=== PATIENT | female | born 1970 | race Caucasian/White ===

== ENCOUNTER 2018-03-04 03:51 | Emergency (ER) | payer OTHER ==
--- NOTE | 2018-03-04 04:24 | ED Physician Documentation ---
General Adult - HISTORIAN Historian: patient - HPI Stated Complaint: pressure, tightness across chest, h/a Chief Complaint: General Adult Additional Information: Tingling in ears, light headed, aching GUTIERREZ, elevated BP, precordial chest pressure, for "several days." Lying down made symptoms worse. BP 176/104 on arrival in ER. No SOB. Had similar episode in September and was seen at [facility] ER with negative eval. Father with heart problems at 61, Mother at 80.No other treatment attempted. No other modifying factors or associated signs. Timing: still present - ROS CONST: no problems - PAST HX Past History: hypertension Surgeries/Procedures: other (uterine abl;ation, oophorectomy, salpingectomy) Allergies/Adverse Reactions: Allergies Allergy/AdvReac Type Severity Reaction Status Date / Time Sulfa (Sulfonamide Allergy Severe Anaphylaxis Verified 03/04/18 04:21 Antibiotics) codeine Allergy Intermediate Hives Unverified 03/04/18 04:21 hydrochlorothiazide AdvReac Cough Verified 03/04/18 04:21 Home Medications: Ambulatory Orders Medication Instructions Recorded Hydroxyzine Pamoate [Vistaril] 25 mg PO Q8 PRN #15 capsule 03/04/18 Levothyroxine Sodium [Synthroid] 75 mcg PO D 03/04/18 Loratadine [Claritin] 10 mg PO DAILY #30 tablet 03/04/18 Losartan Potassium [Cozaar] 50 mg PO BID 03/04/18 Metoprolol Tartrate [Lopressor] 25 mg PO D 03/04/18 - SOCIAL HX Smoking History: non-smoker Alcohol Use: none Drug Use: none - FAMILY HX Family History: Yes (above) - VITAL SIGNS Vital Signs: Vital Signs Temp Pulse Resp BP Pulse Ox 98.3 F 68 14 147/68 94 03/04/18 03:51 03/04/18 03:51 03/04/18 03:51 03/04/18 03:51 03/04/18 03:51 - REVIEWED ASSESSMENTS Nursing Assessment Reviewed: Yes Vitals Reviewed: Yes Progress - Progress Progress: EKG: sinus rhythm, 70 BPM, no acute changes. Report Submission Date: Mar 04, 2018 4:55:11 AM CDT Patient Study Name: CROW STEVENS Date: Mar 04, 2018 4:22:49 AM CDT Modality Type: DX Gender: F Description: CHEST : 66 Institution: [facility] Physician: GINA BRISENO - ER Chest two views History: Chest pain Findings: The lungs are clear. There is no pleural effusion. Heart size and pulmonary vascularity are normal. Osseous structures are unremarkable. Impression: Normal. Electronically signed on Mar 04, 2018 4:55:11 AM CDT by: Yosvany Harrison ED Results Lab/Radiology - Orders Orders: ED Orders Category Date Time Status Continuous EKG monitoring Q1H Care 03/04/18 04:[address] IV Lock 1T Care 03/04/18 04:10 Active CHEST 2VIEW [RAD] Stat Exams 03/04/18 Ordered CBC/PLATELET/DIFF Routine Lab 03/04/18 04:17 Received CMP Routine Lab 03/04/18 04:17 Received TROPONIN I (cTnI) Stat Lab 03/04/18 04:17 Received URINALYSIS Routine Lab 03/04/18 Ordered Acetaminophen [Tylenol Extra Strength] Med 03/04/18 04:19 Once 1,000 mg PO NOW ONE Ondansetron HCl/Pf [Zofran 4 mg/2 ml] Med 03/04/18 04:18 Once 4 mg IVP NOW ONE EKG WITH COMPARISON Stat Ther 03/04/18 Ordered General Adult Physical Exam - PHYSICAL EXAM GENERAL APPEARANCE: mild distress (anxious) EENT: eye inspection normal, ENT inspection normal, pharynx normal, no signs of dehydration, other (tender to palpation over facial sinus areas, especially maxillary) NECK: normal inspection, supple RESPIRATORY: no resp distress, breath sounds normal, other (palpation distal sternal borders reproduces her pain) CVS: reg rate & rhythm, heart sounds normal, no murmur ABDOMEN: soft, normal bowel sounds, no distension, non-tender BACK: normal inspection, no CVA tenderness, other (no vertebral tenderness) SKIN: warm/dry, normal color EXTREMITIES: non-tender, normal range of motion, no evidence of injury, no edema NEURO: CN's nml as tested, motor nml, sensation nml Discharge Clincal Impression: Chest wall pain, Anxiety Prescriptions: Hydroxyzine Pamoate [Vistaril] 25 mg PO Q8 PRN #15 capsule PRN Reason: Anxiety Loratadine [Claritin] 10 mg PO DAILY #30 tablet Referrals: Emmett Campa MD [Primary Care Provider] - 2 Days Additional Instructions: Condition: Good Disposition: 01 HOME, SELF-CARE Decision to Admit: NO Decision Time: 06:55
[2018-03-04] MEDS: ONDANSETRON HCL/PF 4 MG/ 2ML VIAL IVP ONE (04:28)
[2018-03-04] MEDS: ACETAMINOPHEN 500 MG TABLET PO ONE (04:28)
[2018-03-04 04:45] LABS: BASOPHILS % 0.6 (0.0-1.5); EOSINOPHILS % 3.4 % (0.0-6.8); MEAN CORPUSCULAR HEMOGLOBIN 30.7 pg (28.0-34.0); MONOCYTES % 7.9 % (0.0-11.0); NEUTROPHILS # 4.2 # k/uL (1.4-7.7)
[2018-03-04 04:46] LABS: eGFR (Non-African) > 60
[2018-03-04] MEDS: LORATADINE 10 MG TABLET PO ONE (04:59)
--- NOTE | 2018-03-04 06:37 | Diagnostic Imaging Report ---
GINA BRISENO [facility] [address] [facility] [address] [address] Report Submission Date: Mar 04, 2018 4:55:11 AM CDT Patient Study Name: CROW STEVENS Date: Mar 04, 2018 4:22:49 AM CDT Modality Type: DX Gender: F Description: CHEST : 66 Institution: [facility] Physician: GINA BRISENO Chest two views History: Chest pain Findings: The lungs are clear. There is no pleural effusion. Heart size and pulmonary vascularity are normal. Osseous structures are unremarkable. Impression: Normal. Electronically signed on Mar 04, 2018 4:55:11 AM CDT by: Yosvany ROACH
[2018-03-04 07:17] VITALS: BP 148/93
[2018-03-04 11:06] LABS: APPEARANCE,URINE CLEAR (CLEAR); COLOR,URINE YELLOW (YELLOW); OCCULT BLOOD,URINE TRACE-INTACT (NEGATIVE); UROBILINOGEN URINE 0.2 Eu (0.2-1.0)
== END 2018-03-04 07:01 | disposition home or self-care (01) ==
LOC: ED 03:51
DX: R07.89 Other chest pain (principal); F41.9 Anxiety disorder, unspecified
CPT/HCPCS: 71046; 80053; 81002; 84484; 85025; 93005; J2405; 96374; 99284; S1016

== ENCOUNTER 2018-06-03 08:54 | Outpatient (CLI) | payer OTHER | END 2018-06-03 08:55 | LOC: LAB 08:54 | PROVIDERS: ATTEND Internal Medicine Cardiovascular Disease | DX: I10 Essential (primary) hypertension (principal) | CPT/HCPCS: 36415; 82088; 83835 ==